=== PATIENT | male | born 1965 | race Caucasian/White ===

== ENCOUNTER 2021-05-05 21:53 | Emergency (ER) | payer OTHER ==
[2021-05-05 22:04] VITALS: BP 117/72; PULSE 66; TEMP 97.9; BMI 22.6
[2021-05-05] MEDS ORDERED: ACETAMINOPHEN 500 MG TABLET (FP) PO ONE (22:44)
[2021-05-05] MEDS ORDERED: ACETAMINOPHEN 500 MG TABLET (FP) ONE (22:54)
[2021-05-05] MEDS ORDERED: LIDOCAINE 5% TOPICAL PATCH TP ONE (23:01)
[2021-05-05] MEDS ORDERED: LIDOCAINE 5% TOPICAL PATCH ONE (23:08)
[2021-05-06] MEDS ORDERED: LIDOCAINE PATCH REMOVAL MC ONE (11:00)
== END 2021-05-05 23:53 | disposition home or self-care (01) ==
LOC: JER 21:53
DX: M54.6 Pain in thoracic spine (principal); V43.02XA Car driver injured in collision with other type car in nontraffic accident, initial encounter
CPT/HCPCS: 72070-TC-FY; 72100-TC-FY; 99284-25